=== PATIENT | male | born 1980 | race Caucasian/White ===

== ENCOUNTER 2021-12-02 14:14 | Emergency (ER) | payer MEDICAID ==
[2021-12-02] MEDS ORDERED: Ketorolac Tromethamine 30 MG/ML VIAL ONE (15:02)
== END 2021-12-02 15:08 | disposition home or self-care (01) ==
LOC: ERS 14:14
DX: K02.9 Dental caries, unspecified (principal)
CPT/HCPCS: 96372; 99282; J1885

== ENCOUNTER 2022-01-05 07:51 | Emergency (ER) | payer MEDICAID, SELFPAY | END 2022-01-05 08:15 | disposition home or self-care (01) | LOC: ERS 07:51 | DX: M25.531 Pain in right wrist (principal); G89.29 Other chronic pain; J44.9 Chronic obstructive pulmonary disease, unspecified | CPT/HCPCS: 99283 ==

== ENCOUNTER 2022-01-08 11:00 | Emergency (ER) | payer MEDICAID | END 2022-01-08 14:00 | disposition home or self-care (01) | LOC: ERS 11:00 | DX: M79.641 Pain in right hand (principal); J44.9 Chronic obstructive pulmonary disease, unspecified; Z79.899 Other long term (current) drug therapy ==

== ENCOUNTER 2022-01-17 09:41 | Emergency (ER) | payer MEDICAID ==
[2022-01-17 10:18] LABS: Bilirubin Negative (Negative); Blood, Urine Negative (Negative); Clarity Clear (Clear); Glucose, Urine (Dipstick) Normal (Negative); Ketone, Urine Negative (Negative); Leukocyte Negative Leu/uL (Negative); Nitrite Negative (Negative); Protein, Urine (Dipstick) Negative (Neg-Trace); Specific Gravity, Urine 1.005 (1.002-1.036); Urobilinogen Normal mg/dL (Less than 2); pH, Urine 7.5 (5.0-9.0)
== END 2022-01-17 11:02 | disposition home or self-care (01) ==
LOC: ERS 09:41
DX: R11.2 Nausea with vomiting, unspecified (principal); J44.9 Chronic obstructive pulmonary disease, unspecified; F17.210 Nicotine dependence, cigarettes, uncomplicated
CPT/HCPCS: 81003; 99284